=== PATIENT | male | born 1980 | race Two or more races ===

== ENCOUNTER 2019-01-19 01:31 | Emergency (ER) | payer OTHER ==
[~2019-01-19] VITALS: Ht 172.7 cm; Wt 125.2 kg
--- NOTE | 2019-01-19 03:05 | NUR ---
BIBF. C/O "HAVING COUGH/CONGESTION X 5 DAYS AND R FOOT PAIN FROM GOUT" -SOB NOTED. AOX4. VSS. AMBULATORY W ASSISTANCE
[2019-01-19] MEDS ORDERED: COLCHICINE 0.6 MG TABLET ONE (03:24)
[2019-01-19] MEDS ORDERED: ALLOPURINOL 100 MG TABLET PO SCH (03:30)
[2019-01-19] MEDS ORDERED: COLCHICINE 0.6 MG TABLET PO ONE (03:30)
[2019-01-19] MEDS ORDERED: ALLOPURINOL 100 MG TABLET ONE (03:41)
[2019-01-19] MEDS ORDERED: ACETAMINOPHEN ES 500 MG TABLET ONE (04:22)
[2019-01-19] MEDS ORDERED: ACETAMINOPHEN 325 MG TABLET PO ONE (04:30)
[2019-01-19 05:28] VITALS: BP 124/81
== END 2019-01-19 05:31 | disposition home or self-care (01) ==
LOC: ER 01:39
DX: M10.071 Idiopathic gout, right ankle and foot (principal); J06.9 Acute upper respiratory infection, unspecified; I10 Essential (primary) hypertension; E11.9 Type 2 diabetes mellitus without complications; Z98.890 Other specified postprocedural states; Z95.0 Presence of cardiac pacemaker; Z88.6 Allergy status to analgesic agent
CPT/HCPCS: 71045-TC

== ENCOUNTER 2020-01-26 00:31 | Emergency (ER) | payer OTHER ==
[~2020-01-26] VITALS: Ht 172.7 cm; Wt 127.0 kg
[2020-01-26] MEDS ORDERED: ACETAMINOPHEN ES 500 MG TABLET ONE (00:51)
--- NOTE | 2020-01-26 00:56 | NUR ---
PT AAOX4. BIBWIFE, C/O FEVER OF 101.7. STATED FEVER X3 DAYS ONLY AT NIGHT. VSS. PLACED IN BED 6 ON MONITOR AND PULSE OX. NO ACUTE DISTRESS NOTED.
[2020-01-26] MEDS ORDERED: ACETAMINOPHEN 325 MG TABLET PO ONE (01:00)
--- NOTE | 2020-01-26 01:15 | NUR ---
XRAY AT BEDSIDE
[2020-01-26 02:26] VITALS: BP 141/76
--- NOTE | 2020-01-26 02:26 | NUR ---
Patient discharged to home in stable condition. Written and verbal after care instructions given. Patient verbalizes understanding of instruction. Pt instructed to take tylenol and ibuprofen.
== END 2020-01-26 02:26 | disposition home or self-care (01) ==
LOC: ER 00:34
DX: R50.9 Fever, unspecified (principal); I10 Essential (primary) hypertension; E11.9 Type 2 diabetes mellitus without complications; M10.9 Gout, unspecified; Z95.0 Presence of cardiac pacemaker; Z98.890 Other specified postprocedural states; Z88.6 Allergy status to analgesic agent
CPT/HCPCS: 71045-TC

== ENCOUNTER 2020-01-27 19:17 | Emergency (ER) | payer OTHER ==
[~2020-01-27] VITALS: Ht 172.7 cm; Wt 127.0 kg
--- NOTE | 2020-01-27 19:20 | NUR ---
PT CAME TO THE ER C/O FEVER,LOW BLOOD PRESSURE, AND PALPITATIONS SINCE THIS MORNING. PT WAS SEEN HERE YESTERDAY. PER PT'S FAMILY, THEY ARE CONCERNED ABOUT THE PT'S HISTORY. PT AAOX4, VSS, RESPIRATIONS EVEN AND UNLABORED ON RA W/ NAD NOTED. PT CONNECTED TO THE MONITOR AND POX
--- NOTE | 2020-01-27 19:55 | NUR ---
DEATH CLAIM CLERK AT BEDSIDE FOR BLOOD DRAW
--- NOTE | 2020-01-27 19:56 | NUR ---
CALLED LAB FOR COVID SWAB
[2020-01-27] MEDS ORDERED: ACETAMINOPHEN ES 500 MG TABLET PO ONE (20:00)
[2020-01-27 20:04] LABS: BASOPHILS % (AUTO) 0.5 % (0.0-2.0); EOSINOPHILS % (AUTO) 0.2 % (0.0-6.0); HEMATOCRIT 40 % (39-51); HEMOGLOBIN 13.1 g/dL (13.5-17.5); LYMPHOCYTES # (AUTO) 1.3 /CMM (0.8-4.8); LYMPHOCYTES % (AUTO) 24.7 % (20.0-44.0); MEAN CORPUSCULAR HGB CONC 33 g/dl (31.0-36.0); MEAN CORPUSCULAR VOLUME 79 fL (80-96); MONOCYTES # (AUTO) 0.6 /CMM (0.1-1.30); MONOCYTES % (AUTO) 11.1 % (2.0-12.0); NEUTROPHILS # (AUTO) 3.4 /CMM (1.8-8.9); NEUTROPHILS % (AUTO) 63.5 % (43.0-81.0); PLATELET COUNT (AUTO) 187 /CMM (150-450); RED BLOOD CELL COUNT(AUTO) 5.08 MIL/uL (4.5-6.0); WHITE BLOOD COUNT (AUTO) 5.4 K/uL (4.3-11.0)
--- NOTE | 2020-01-27 20:08 | NUR ---
COVID SWAB SENT TO LAB
[2020-01-27 20:11] LABS: CARBON DIOXIDE 21 mmol/L (21-32); CHLORIDE 93 mmol/L (98-107); CREATININE 2.9 mg/dL (0.6-1.3); GLUCOSE 263 mg/dL (74-106); POTASSIUM 4.5 mmol/L (3.5-5.1); SODIUM SERUM 127 mmol/L (136-145); UREA NITROGEN, BLOOD 48 mg/dL (7-18)
[2020-01-27 20:24] LABS: ALANINE AMINOTRANSFERASE 126 U/L (12-78); ALBUMIN 3.3 g/dL (3.4-5.0); ALKALINE PHOSPHATASE 68 U/L (46-116); ASPARTATE AMINOTRANSFERASE 57 U/L (15-37); B-TYPE NATRIURETIC PEPTIDE 52 PG/ML (0-125); BILIRUBIN,TOTAL 0.4 mg/dL (0.2-1.0); TOTAL PROTEIN, SERUM 8.2 g/dL (6.4-8.2)
[2020-01-27 20:34] VITALS: BP 128/75
[2020-01-27 20:52] LABS: CREATINE KINASE, TOTAL 119 U/L (39-308); FERRITIN 2601 ng/mL (8-388)
[2020-01-27 20:56] LABS: C-REACTIVE PROTEIN 8.5 mg/dL (0.0-0.9)
[2020-01-27 20:57] LABS: D-DIMER 0.72 mg/L(FEU (0.17-0.50)
--- NOTE | 2020-01-27 21:10 | NUR ---
DR GARCIA AT BEDSIDE
[2020-01-27] MEDS ORDERED: LEVOFLOXACIN (250MG) 250 MG TABLET ONE (21:18)
--- NOTE | 2020-01-27 21:25 | NUR ---
Patient does not wish to proceed with medical care recommended by Dr. Hollingsworth. Patient given information related to possible complications, up to and including , which could occur as a result of leaving the hospital at this time. Patient verbalizes understanding of risks involved due to leaving against medical advice. Patient has signed AMA form.
[2020-01-27] MEDS ORDERED: LEVOFLOXACIN (250MG) 250 MG TABLET PO ONE (21:30)
--- NOTE | 2020-01-29 11:55 | NUR ---
CALLED REJI & NOTIFIED THAT HE'S COVID +. INSTRUCTED TO SELF QUARANTINE & RETURN IF CONDITION GETS WORSE. RAHEL AWARE ALSO. INSTRUCTED TO BE RETESTED, CALL [facility] FOR LOCATIONS OF COVID DRIVE THRU TEST. REJI & ACKNOWLEDGED WITH VERBAL UNDESTANDING.
== END 2020-01-27 21:26 | disposition left against medical advice (07) ==
LOC: ER 19:19
DX: U07.1 COVID-19 (principal); E87.1 Hypo-osmolality and hyponatremia; E87.2 Acidosis; Z95.810 Presence of automatic (implantable) cardiac defibrillator; E11.9 Type 2 diabetes mellitus without complications; R91.8 Other nonspecific abnormal finding of lung field; I10 Essential (primary) hypertension
CPT/HCPCS: 36415; 71045; 80053; 82550; 82728; 83605; 83615; 83880; 84145; 84484; 85025; 85378; 85385; 85730; 86140; 99284; C9803; U0003

== ENCOUNTER 2020-10-27 22:42 | Emergency (ER) | payer OTHER ==
[~2020-10-27] VITALS: Ht 172.7 cm; Wt 130.3 kg
--- NOTE | 2020-10-27 22:56 | NUR ---
BIBSELF C/O CHEST PAIN STARTED 15 MIN MASTER ELECTRICIAN +DIZZINESS, TOOK CARVEDILOL, AMLODIPINE, AND HYDRALZINE MASTER ELECTRICIAN, TO ER BED 3 AWAITING MD CARABALLO
[2020-10-27 23:19] LABS: BASOPHILS # (AUTO) 0.1 /CMM (0.0-0.2); BASOPHILS % (AUTO) 1.5 % (0.0-2.0); EOSINOPHILS % (AUTO) 3.5 % (0.0-6.0); HEMATOCRIT 44 % (39-51); HEMOGLOBIN 14.4 g/dL (13.5-17.5); LYMPHOCYTES # (AUTO) 2.3 /CMM (0.8-4.8); LYMPHOCYTES % (AUTO) 27.1 % (20.0-44.0); MEAN CORPUSCULAR HGB CONC 33 g/dl (31.0-36.0); MEAN CORPUSCULAR VOLUME 79 fL (80-96); MONOCYTES # (AUTO) 0.7 /CMM (0.1-1.30); MONOCYTES % (AUTO) 7.8 % (2.0-12.0); NEUTROPHILS % (AUTO) 60.1 % (43.0-81.0); PLATELET COUNT (AUTO) 249 /CMM (150-450); RED BLOOD CELL COUNT(AUTO) 5.51 MIL/uL (4.5-6.0); WHITE BLOOD COUNT (AUTO) 8.3 K/uL (4.3-11.0)
[2020-10-27 23:26] LABS: CALCIUM, SERUM 9.2 mg/dL (8.5-10.1); CARBON DIOXIDE 23 mmol/L (21-32); CHLORIDE 100 mmol/L (98-107); CREATININE 1.6 mg/dL (0.6-1.3); GLUCOSE 225 mg/dL (74-106); POTASSIUM 4.3 mmol/L (3.5-5.1); SODIUM SERUM 136 mmol/L (136-145); UREA NITROGEN, BLOOD 25 mg/dL (7-18)
[2020-10-28] MEDS ORDERED: hydrALAZINE HCL IV 20 MG VIAL ONE (00:14)
[2020-10-28] MEDS ORDERED: CLON0.2T PO (00:16)
[2020-10-28] MEDS ORDERED: hydrALAZINE HCL IV 20 MG VIAL IV ONE (00:30)
[2020-10-28 00:43] VITALS: BP 167/98
--- NOTE | 2020-10-28 00:43 | NUR ---
Patient discharged to home in stable condition. Written and verbal after care instructions given. Patient verbalizes understanding of instruction.
== END 2020-10-28 00:43 | disposition home or self-care (01) ==
LOC: ER 22:44
DX: R07.89 Other chest pain (principal); I10 Essential (primary) hypertension; E11.9 Type 2 diabetes mellitus without complications; Z88.6 Allergy status to analgesic agent; Z95.0 Presence of cardiac pacemaker
CPT/HCPCS: 36415; 71045; 80048; 83880; 84484; 85025; 93005 ×2; 96374; 99285; J0360

== ENCOUNTER 2021-07-15 10:49 | Inpatient (IN) | payer OTHER ==
[~2021-07-15] VITALS: Ht 172.7 cm; Wt 119.7 kg
[~2021-07-15 10:49] MED LIST: CLON0.2T PO
--- NOTE | 2021-07-15 11:02 | NUR ---
pt to er bed 02 c/o "chest arrythmia" sudden onset around 1 1/2 hour ago. pt appears anxious [employer]. 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 gowned and placed on monitor showing afib. awaiting md [place]ledo.
--- NOTE | 2021-07-15 11:04 | NUR ---
dr florian at bedside for eval.
--- NOTE | 2021-07-15 11:16 | NUR ---
radiology at bedside for chest xray
[2021-07-15] MEDS ORDERED: DILTIAZEM HCL 25 MG IV ONE (11:28)
[2021-07-15] MEDS ORDERED: DILTIAZEM HCL 50 MG IV IV ONE ×2 (11:30→12:00)
[2021-07-15] MEDS ORDERED: LORAZEPAM INJ 2 MG/ML VIAL ONE (11:37)
--- NOTE | 2021-07-15 11:43 | NUR ---
pt HR still at 122, appears anxious. dr florian at bedside. verbal order for cardizem 10mg and ativan 0.5 ivp. orders carried out.
[2021-07-15 11:56] LABS: BASOPHILS # (AUTO) 0.2 K/uL (0.0-0.2); BASOPHILS % (AUTO) 1.4 % (0.0-2.0); EOSINOPHILS % (AUTO) 2.2 % (0.0-6.0); HEMATOCRIT 46 % (39-51); HEMOGLOBIN 15.2 g/dL (13.5-17.5); LYMPHOCYTES # (AUTO) 2.7 K/uL (0.8-4.8); LYMPHOCYTES % (AUTO) 23.5 % (20.0-44.0); MEAN CORPUSCULAR HGB CONC 33 g/dl (31.0-36.0); MEAN CORPUSCULAR VOLUME 77 fL (80-96); MONOCYTES # (AUTO) 0.9 K/uL (0.1-1.30); MONOCYTES % (AUTO) 7.8 % (2.0-12.0); NEUTROPHILS # (AUTO) 7.5 K/uL (1.8-8.9); NEUTROPHILS % (AUTO) 65.1 % (43.0-81.0); PLATELET COUNT (AUTO) 302 K/uL (150-450); RED BLOOD CELL COUNT(AUTO) 5.89 MIL/uL (4.5-6.0); WHITE BLOOD COUNT (AUTO) 11.5 K/uL (4.3-11.0)
[2021-07-15] MEDS ORDERED: LORAZEPAM INJ 2 MG/ML VIAL IV ONE (12:00)
[2021-07-15] MEDS ORDERED: DULA0.75 SQ (13:11)
[2021-07-15] MEDS ORDERED: CARV25TA2 PO (13:11)
[2021-07-15] MEDS ORDERED: METF-442 PO (13:11)
[2021-07-15] MEDS ORDERED: HYDR-4077 PO (13:11)
[2021-07-15] MEDS ORDERED: LOSA100T31 PO (13:11)
[2021-07-15] MEDS ORDERED: AMLO-213 PO (13:11)
--- NOTE | 2021-07-15 13:23 | NUR ---
[facility] CALLED SPOOL SORTER PAGED.
--- NOTE | 2021-07-15 13:43 | NUR ---
[facility] CALLED LAYOUT WORKER PAGED.
--- NOTE | 2021-07-15 14:03 | NUR ---
nino left contact # [phone]
--- NOTE | 2021-07-15 14:30 | NUR ---
RECEIVED AUTHORIZATION FROM INSURANCE PER ADMITTING
[2021-07-15 14:44] LABS: CARBON DIOXIDE 24 mmol/L (21-32); CHLORIDE 98 mmol/L (98-107); CREATININE 2.6 mg/dL (0.6-1.3); GLUCOSE 190 mg/dL (74-106); POTASSIUM 5.8 mmol/L (3.5-5.1); SODIUM SERUM 132 mmol/L (136-145); UREA NITROGEN, BLOOD 45 mg/dL (7-18)
--- NOTE | 2021-07-15 15:23 | NUR ---
pt resting in bed. on monitor w/ updated vitals. will continue to monitor.
--- NOTE | 2021-07-15 16:39 | NUR ---
room 103
--- NOTE | 2021-07-15 17:20 | NUR ---
report given to marlon mehta. transfered to floor.
[2021-07-15] MEDS ORDERED: ACETAMINOPHEN 325 MG TABLET PO PRN (18:00)
[2021-07-15] MEDS ORDERED: hydrALAZINE HCL 50 MG TABLET PO PRN (18:00)
[2021-07-15] MEDS ORDERED: Z GUARD REMEDY 4 OZ OINT TP PRN (18:00)
[2021-07-15] MEDS ORDERED: DEXTROSE 50%-WATER 50 ML DISP.SYRIN IV PRN (18:00)
[2021-07-15] MEDS ORDERED: ONDANSETRON HCL/PF 4 MG/2 ML VIAL IVP PRN (18:00)
[2021-07-15] MEDS ORDERED: ZOLPIDEM TARTRATE 5 MG TABLET PO PRN (18:00)
--- NOTE | 2021-07-15 18:00 | NUR ---
RN NOTES RECEIVED PATIENT FROM ER AMBULATORY, A/O X4 LITHUANIAN SPEAKING. NO REPORT OF PAIN AT THIS TIME. ABLE TO MAKE NEEDS KNOWN. NO SOB OR RESPIRATORY DISCOMFORT. BREATHING EXPANSION EQUAL. VITAL SIGNS ARE BP 131/86, 52 HR, 98% O2 AND 18 RR. BED IN LOWEST POSITION AND LOCKED. CALL LIGHT WITHIN REACH. WILL CONTINUE TO MONITOR.
[2021-07-15] MEDS: APIXABAN 5 MG TABLET PO SCH (18:10)
[2021-07-15] MEDS: DILTIAZEM HCL CD 180 MG PO SCH (18:19)
[2021-07-15] MEDS ORDERED: SODIUM POLYSTYRENE SULFONATE 15 G/60 ML BOTTLE PO ONE (19:00)
[2021-07-15] MEDS ORDERED: LORAZEPAM 1 MG TABLET PO PRN (19:30)
[2021-07-15] MEDS ORDERED: DIGOXIN INJ 0.5 MG/2 ML AMPUL IV ONE (19:30)
--- NOTE | 2021-07-15 19:35 | NUR ---
RN NOTES RECEIVED PT FROM AM SHIFT FOR CONTINUATION OF ADMISSION. PT IS A/OX4 IN NO SIGNS OF ACUTE RESPIRATORY DISTRESS, NO COMPLAINTS OF PAIN & DISCOMFORT AT THIS TIME. CURRENTLY ON ROOM AIR TOLERATES WELL WITH 02 SAT >95% AT THIS TIME. COMPREHENSIVE PHYSICAL ASSESSMENT AND PATIENT CARE DONE. CALL LIGHT WITHIN REACH, SAFETY MEASURES AND ISOLATION PRECAUTION IN PLACE, WILL CONTINUE MONITOR AND ASSESS THROUGHOUT THE SHIFT. WILL CARRY OUT MD ORDERS ACCORDINGLY. COMBINER MADE AWARE.
[2021-07-15 20:00] VITALS: BP 135/90
[2021-07-15] MEDS: BLOOD SUGAR DIAGNOSTIC 1 EACH STRIP IN SCH (22:18)
[2021-07-15] MEDS: INSULIN REGULAR, HUMAN 100 UNIT/ML 3 ML VIAL SQ PRN (22:19)
[2021-07-16] VITALS: BP 137/83
--- NOTE | 2021-07-16 | NUR ---
RN NOTES PATIENT REMAINED TO BE IN NO SIGNS OF ACUTE RESPIRATORY DISTRESS, NO COMPLAINTS OF PAIN OR CHESTPAIN AT THIS TIME , VITAL SIGNS WNL AT THIS TIME. CHIP UNLOADER MADE AWARE. WILL CONTINUE TO MONITOR AND REASSESS FOR ANY CHANGES THROUGHOUT THE SHIFT.
[2021-07-16 04:00] VITALS: BP 134/91
[2021-07-16 06:25] LABS: BASOPHILS # (AUTO) 0.1 K/uL (0.0-0.2); BASOPHILS % (AUTO) 1.2 % (0.0-2.0); EOSINOPHILS % (AUTO) 2.9 % (0.0-6.0); HEMATOCRIT 45 % (39-51); HEMOGLOBIN 14.9 g/dL (13.5-17.5); LYMPHOCYTES # (AUTO) 3.6 K/uL (0.8-4.8); LYMPHOCYTES % (AUTO) 35.4 % (20.0-44.0); MEAN CORPUSCULAR HGB CONC 33 g/dl (31.0-36.0); MEAN CORPUSCULAR VOLUME 77 fL (80-96); MONOCYTES # (AUTO) 0.9 K/uL (0.1-1.30); MONOCYTES % (AUTO) 8.6 % (2.0-12.0); NEUTROPHILS # (AUTO) 5.3 K/uL (1.8-8.9); NEUTROPHILS % (AUTO) 51.9 % (43.0-81.0); PLATELET COUNT (AUTO) 285 K/uL (150-450); RED BLOOD CELL COUNT(AUTO) 5.81 MIL/uL (4.5-6.0); WHITE BLOOD COUNT (AUTO) 10.1 K/uL (4.3-11.0)
--- NOTE | 2021-07-16 06:44 | NUR ---
RN CLOSING NOTE: PATIENT REMAINS IN ROOM IN NO SIGNS OF RESPIRATORY DISTRESS, PATIENT STILL ON ROOM AIR;TOLERATING WELL SATURATING @ >95% SP02. STILL ON TELE MONITORING WITH RHYTHM OF AFIB CONTROLLED CURRENTLY HR IS AT 85 BPM. NO COMPLAINTS OF CHEST PAIN OR PALPITATION DURING THE SHIFT. SAFETY MEASURES IMPLEMENTED, BED IN LOWEST POSITION, LOCKED, SIDE RAILS UP, CALL LIGHT WITHIN REACH. ALL NEEDS AND ORDERS ADDRESSED DURING THE SHIFT. IV ACCESS MAINTAINED INTACT, SECURED AND FLUSHING WELL. ALL DUE MEDS GIVEN ORDERED & SCHEDULED ; PATIENT TOLERATED WELL. PATIENT KEPT CLEAN AND COMFORTABLE WITHIN THE SHIFT. PATIENT ENDORSED TO INCOMING SHIFT RN WITH STABLE VITAL SIGN AND FOR CONTINUITY OF CARE.
[2021-07-16 07:00] LABS: ALBUMIN 2.5 g/dL (3.4-5.0); BILIRUBIN,TOTAL 0.2 mg/dL (0.2-1.0); CALCIUM, SERUM 8.9 mg/dL (8.5-10.1); CREATININE 2.5 mg/dL (0.6-1.3); PHOSPHORUS 5.2 mg/dL (2.5-4.9); POTASSIUM 3.9 mmol/L (3.5-5.1); TOTAL PROTEIN, SERUM 6.9 g/dL (6.4-8.2)
[2021-07-16 07:24] LABS: THYROID STIMULATING HORMONE 2.966 uIU/mL (0.358-3.74)
--- NOTE | 2021-07-16 07:26 | NUR ---
RN OPENING NOTES RECEIVED PATIENT RESTING IN BED A/OX 4 NO SIGNS OF RESPIRATORY DISTRESS, PATIENT ON ROOM AIR;TOLERATING WELL SATURATING 98% SP02. NO CURRENT COMPLAINTS OF CHEST PAIN . IV ACCESS ON RIGHT HAND 22g SL. SAFETY MEASURES IMPLEMENTED, BED IN LOWEST POSITION, LOCKED, SIDE RAILS UP, CALL LIGHT WITHIN REACH.
[2021-07-16 08:00] VITALS: BP 132/91
[2021-07-16] MEDS: DILTIAZEM HCL CD 180 MG PO SCH (08:06)
[2021-07-16] MEDS: CARVEDILOL 12.5 MG TABLET PO SCH ×2 (08:07→18:14)
[2021-07-16] MEDS: LOSARTAN POTASSIUM 50 MG TABLET PO SCH (08:07)
[2021-07-16] MEDS: PANTOPRAZOLE 40 MG TABLET.DR PO SCH (08:07)
[2021-07-16] MEDS: APIXABAN 5 MG TABLET PO SCH ×2 (08:08→18:13)
[2021-07-16] MEDS: AMLODIPINE BESYLATE 10 MG TABLET PO SCH (08:12)
[2021-07-16] MEDS: BLOOD SUGAR DIAGNOSTIC 1 EACH STRIP IN SCH ×4 (08:21→21:25)
[2021-07-16] MEDS: INSULIN REGULAR, HUMAN 100 UNIT/ML 3 ML VIAL SQ PRN ×3 (08:21→21:25)
--- NOTE | 2021-07-16 08:22 | NUR ---
RN NOTE PATIENTS AC BLOOD SUGAR NOTED TO BE 176, INSULIN COVERAGE OF 3 UNITS PRESCRIBED.PATIENT REFUSED INSULIN. DISCUSSED WITH HIM THE RECOMMENDED PRESCRIPTION AND REASONING FOR RX. PATIENT REFUSED.
[2021-07-16] MEDS ORDERED: METFORMIN 500 MG TABLET PO SCH (09:00)
[2021-07-16] MEDS ORDERED: AMIODARONE 150 MG in IV D5W 100 ML IV ONE (10:00)
--- NOTE | 2021-07-16 10:40 | NUR ---
RN NOTE PATIENT STARTED ON AMIODARONE IV BOLUS. PATIENT STABLE VITALS 98.2 TEMP, 86 BPM HR, 137/66 BLOOD PRESSURE. WILL STAY WITH PATIENT FOR THE NEXT 15 MINUTES WHILE INFUSING PATIENT ALSO INFORMED TO STATE ANY PALPITATIONS OR CHANGES.
--- NOTE | 2021-07-16 10:55 | NUR ---
RN NOTE PATIENT STABLE BLOOD PRESSURE 117/83, PULSE86, TEMP 98.2. NO REACTION NOTED. WILL INITIATE AMIODARONE 1MG/MIN FOR THE NEXT 6HRS. PATIENT REMINDED TO ALERT NURSE FOR ANY CHANGES.
[2021-07-16] MEDS: AMIODARONE 450 MG in IV D5W 250 ML IV PRN ×2 (11:19→19:06)
--- NOTE | 2021-07-16 11:19 | NUR ---
RN NOTE AMIODARONE 1MG/ML STARTED. PATIENT IN STABLE CONDITION. REMINDED TO REPORT ANY CHANGE IN CONDITION.
[2021-07-16 12:00] VITALS: BP 117/83
[2021-07-16] MEDS: DIGOXIN 0.125 MG TABLET PO SCH (13:21)
[2021-07-16 16:00] VITALS: BP 115/72
--- NOTE | 2021-07-16 19:02 | NUR ---
RN CLOSING NOTES RECEIVED PATIENT RESTING IN BED A/OX 4 NO SIGNS OF RESPIRATORY DISTRESS, PATIENT ON ROOM AIR;TOLERATING WELL SATURATING 98% SP02. NO CURRENT COMPLAINTS OF CHEST PAIN . IV ACCESS ON LEFT HAND 22g CURRENTLY RUNNING AMIODARONE DRIP 0.5MG. . SAFETY MEASURES IMPLEMENTED, BED IN LOWEST POSITION, LOCKED, SIDE RAILS UP, CALL LIGHT WITHIN REACH. WILL ENDORSE TO NIGHT NURSE FOR DIVINA.
--- NOTE | 2021-07-16 19:30 | NUR ---
RN NOTES RECEIVED PT FOR CONTINUITY OF CARE. PATIENT A/OX4 IN NO S/SX OF ACUTE DISTRESS AT THIS TIME; CURRENTLY ON ROOM AIR, WITH 02 SAT >95% AT THIS TIME. RECEIVED PT WITH RUNNING AMIO DRIP @0.5MG/MIN MONITORED PER PROTOCOL. WITH IV ACCESS ON L HAND #22L PATENT, INTACT AND FLUSHING WELL. WILL ENSURE SAFETY MEASURES WITHIN THE SHIFT. PATIENT BED ALARM IS ON. HEAD OF BED ELEVATED. BED IS LOCKED, IN LOWEST POSITION AND SIDE RAILS UP. CALL LIGHT WITHIN REACH OF THE PATIENT. APPLICABLE ISOLATION PRECAUTIONS IN PLACE. WILL CONTINUE TO MONITOR AND REASSESS FOR ANY CHANGES AND WILL CARRY OUT ANY ONGOING AND ACTIVE MD ORDER.
[2021-07-16 20:00] VITALS: BP 127/80
--- NOTE | 2021-07-16 20:55 | NUR ---
RN NOTES PICC LINE NURSE (JOSE) FACILITATED INSERTION OF MIDLINE @R UA G#18, SECURED , INTACT AND FLUSHING WELL. BANK COURIER WELL AWARE.
[2021-07-17] VITALS (7 sets, daily range): BP systolic 106–124; BP diastolic 64–82
--- NOTE | 2021-07-17 06:36 | NUR ---
RN CLOSING NOTE: PATIENT REMAINS IN ROOM IN NO SIGNS OF RESPIRATORY DISTRESS, PATIENT STILL ON ROOM AIR;TOLERATING WELL SATURATING @ >95% SP02. STILL ON TELE MONITORING WITH RHYTHM OF AFIB CONTROLLED CURRENTLY HR IS AT 76 BPM. NO COMPLAINTS OF CHEST PAIN OR PALPITATION DURING THE SHIFT. WITH RUNNING AMIO DRIP CURRENTLY @0.5MG/MIN, INFUSING PER PROTOCOL. SAFETY MEASURES IMPLEMENTED, BED IN LOWEST POSITION, LOCKED, SIDE RAILS UP, CALL LIGHT WITHIN REACH. ALL NEEDS AND ORDERS ADDRESSED DURING THE SHIFT. IV ACCESS MAINTAINED INTACT, SECURED AND FLUSHING WELL. ALL DUE MEDS GIVEN ORDERED & SCHEDULED ; PATIENT TOLERATED WELL. PATIENT KEPT CLEAN AND COMFORTABLE WITHIN THE SHIFT. PATIENT ENDORSED TO INCOMING SHIFT RN WITH STABLE VITAL SIGN AND FOR CONTINUITY OF CARE.
--- NOTE | 2021-07-17 07:30 | NUR ---
TD RN AM NOTE: PATIENT IN BED, ON ROOM AIR;NOT IN ANY DISTRESS, RESPIRATION UNLABORED, TOLERATING WELL SATURATING @ >95% SP02. AFIB CONTROLLED HR 78, DENIES ANY CHEST PAIN OR DISCOMFORT AT THIS TIME. WITH RUNNING AMIO DRIP CURRENTLY @0.5MG/MIN, OMAR MIDLINE, LEFT AC IV SITE, FLUSHES WELL, BOTH SITES CLEAR. AMBULATORY CCHO DIET. SAFETY MEASURES IMPLEMENTED, BED IN LOWEST POSITION, LOCKED, SIDE RAILS UP, CALL LIGHT WITHIN REACH. WILL CONTINUE TO MONITOR
[2021-07-17] MEDS: BLOOD SUGAR DIAGNOSTIC 1 EACH STRIP IN SCH ×4 (08:22→22:31)
[2021-07-17] MEDS: PANTOPRAZOLE 40 MG TABLET.DR PO SCH (08:23)
[2021-07-17] MEDS: AMLODIPINE BESYLATE 10 MG TABLET PO SCH (08:27)
[2021-07-17] MEDS: DILTIAZEM HCL CD 180 MG PO SCH (08:27)
[2021-07-17] MEDS: CARVEDILOL 12.5 MG TABLET PO SCH ×2 (08:27→17:07)
[2021-07-17] MEDS: LOSARTAN POTASSIUM 50 MG TABLET PO SCH (08:28)
[2021-07-17] MEDS: APIXABAN 5 MG TABLET PO SCH ×2 (08:29→17:08)
--- NOTE | 2021-07-17 08:50 | NUR ---
RN NOTES PER DR. BLAKE TO [facility] SCHEDULED FOR CARDIOVERSION AT 1600 ROOM 254 ICU
[2021-07-17] MEDS: INSULIN REGULAR, HUMAN 100 UNIT/ML 3 ML VIAL SQ PRN ×2 (09:19→17:14)
--- NOTE | 2021-07-17 09:30 | NUR ---
RN NOTES DUE MEDS GIVEN. DR. BLAKE SPOKE WITH . ACCORDING TO HER, HER SUPPOSED TO HAVE THE SAME PROCEDURE IN [facility] BUT DID NOT DO IT DUE TO WEAK HEART. THEY WANT TO WAIT FOR CARDIOVERSION PROCEDURE AND NOT DONE AT THIS TIME. DR. GOLDBERG SAID HE WILL SPEAK TO THEIR ENVIRONMENTAL HEALTH AND SAFETY LEADER. KEEP PATIENT NPO
--- NOTE | 2021-07-17 12:16 | NUR ---
RN NOTES ACCUCHECK DONE. BS 185 MG/DL. PER FAMILY REQUEST, NO INSULIN AT THIS TIME. PT IS NPO FOR SCHEDULED CARDIOVERSION. PER DR. PENDLETON HOLD DIGOXIN 0.125 FOR NOW
[2021-07-17] MEDS: DIGOXIN 0.125 MG TABLET PO SCH (12:30)
--- NOTE | 2021-07-17 14:50 | NUR ---
RN NOTES PATIENT TRANSFERRED TO ICU 254 FOR SCHEDULED CARDIOVERSION. REPORT GIVEN TO LISA CORONA FOR DIVINA
[2021-07-17 15:32] LABS: BASOPHILS # (AUTO) 0.1 K/uL (0.0-0.2); BASOPHILS % (AUTO) 0.9 % (0.0-2.0); EOSINOPHILS % (AUTO) 1.9 % (0.0-6.0); HEMATOCRIT 44 % (39-51); HEMOGLOBIN 14.7 g/dL (13.5-17.5); LYMPHOCYTES # (AUTO) 2.4 K/uL (0.8-4.8); LYMPHOCYTES % (AUTO) 22.8 % (20.0-44.0); MEAN CORPUSCULAR HGB CONC 34 g/dl (31.0-36.0); MEAN CORPUSCULAR VOLUME 77 fL (80-96); MONOCYTES # (AUTO) 0.8 K/uL (0.1-1.30); MONOCYTES % (AUTO) 7.4 % (2.0-12.0); PLATELET COUNT (AUTO) 302 K/uL (150-450); RED BLOOD CELL COUNT(AUTO) 5.69 MIL/uL (4.5-6.0); WHITE BLOOD COUNT (AUTO) 10.5 K/uL (4.3-11.0)
[2021-07-17 15:46] LABS: ALBUMIN 2.8 g/dL (3.4-5.0); BILIRUBIN,TOTAL 0.3 mg/dL (0.2-1.0); CALCIUM, SERUM 8.7 mg/dL (8.5-10.1); CREATININE 3.2 mg/dL (0.6-1.3); MAGNESIUM 2.3 mg/dL (1.8-2.4); PHOSPHORUS 4.6 mg/dL (2.5-4.9); TOTAL PROTEIN, SERUM 7.1 g/dL (6.4-8.2)
--- NOTE | 2021-07-17 16:30 | NUR ---
RN NOTE AT APPROX 1500, PT WAS BROUGHT UP BY GISELE RN AND SOCIAL SERVICES DESIGNEE VIA HOSP BED. PT IS A&OX4, CALM AND COOPERATIVE, NO C/O PAIN. AT APPROX 1620, PT WAS CARDIOVERTED, PT WOKE UP FROM SEDATION AT 1635, WAS GIVEN OKAY TO RETURN DOWNSTAIRS BY . AT 1640, PT WAS TRANSPORTED BACK TO [facility] ACCOMPANIED BY PRIMARY RN AND CN ON PORTABLE BEDSIDE MONITOR. PT ENDORSED TO FORMER RN, BREATHING EVEN AND UNLABORED ON RA, C/O MINOR PAIN IN CHEST, A&OX4 AND CALM/COOPERATIVE.
--- NOTE | 2021-07-17 16:45 | NUR ---
CHLOE OTES S/P CARDIOVERSION FROM ICU. SINUS RHYTHM ON EKG DENIES ANY DISCOMFORT.
[2021-07-17] MEDS: AMIODARONE HCL 200 MG TABLET PO SCH (17:07)
--- NOTE | 2021-07-17 22:15 | NUR ---
RN NOTES ACCUCHECK BS 143 MG/DL, REFUSED INSULIN SS
[2021-07-18] VITALS: BP 123/70
[2021-07-18 04:00] VITALS: BP 134/83
--- NOTE | 2021-07-18 06:34 | NUR ---
TD RN AM NOTE: PATIENT IN BED, ASLEEP, RESPONDS TO NAME AND TOUCH, AOX4, SLOV[place] SPEAKING. ON ROOM AIR;NOT IN ANY DISTRESS, RESPIRATION UNLABORED, TOLERATING WELL SATURATING @ >95% SP02. SR HR 81, DENIES ANY CHEST PAIN OR DISCOMFORT AT THIS TIME. OMAR MIDLINE, LEFT AC IV SITE, FLUSHES WELL, BOTH SITES CLEAR. AMBULATORY CCHO DIET. SAFETY MEASURES IMPLEMENTED, BED IN LOWEST POSITION, LOCKED, SIDE RAILS UP, CALL LIGHT WITHIN REACH. ALL NEEDS MET. WILL ENDORSE TO NEXT SHIFT FOR DIVINA. S/P CARDIOVERSION 07/17/2021.
[2021-07-18 06:49] LABS: ALBUMIN 2.7 g/dL (3.4-5.0); BILIRUBIN,TOTAL 0.3 mg/dL (0.2-1.0); CALCIUM, SERUM 8.7 mg/dL (8.5-10.1); CREATININE 3.3 mg/dL (0.6-1.3); MAGNESIUM 2.2 mg/dL (1.8-2.4); PHOSPHORUS 5.3 mg/dL (2.5-4.9); POTASSIUM 3.6 mmol/L (3.5-5.1); TOTAL PROTEIN, SERUM 6.7 g/dL (6.4-8.2)
[2021-07-18 07:03] LABS: BASOPHILS # (AUTO) 0.1 K/uL (0.0-0.2); BASOPHILS % (AUTO) 1.2 % (0.0-2.0); EOSINOPHILS % (AUTO) 2.8 % (0.0-6.0); HEMATOCRIT 40 % (39-51); HEMOGLOBIN 13.5 g/dL (13.5-17.5); LYMPHOCYTES # (AUTO) 3.2 K/uL (0.8-4.8); LYMPHOCYTES % (AUTO) 37.1 % (20.0-44.0); MEAN CORPUSCULAR HGB CONC 34 g/dl (31.0-36.0); MEAN CORPUSCULAR VOLUME 77 fL (80-96); MONOCYTES # (AUTO) 0.7 K/uL (0.1-1.30); MONOCYTES % (AUTO) 8.2 % (2.0-12.0); NEUTROPHILS # (AUTO) 4.3 K/uL (1.8-8.9); NEUTROPHILS % (AUTO) 50.7 % (43.0-81.0); PLATELET COUNT (AUTO) 248 K/uL (150-450); RED BLOOD CELL COUNT(AUTO) 5.25 MIL/uL (4.5-6.0); WHITE BLOOD COUNT (AUTO) 8.5 K/uL (4.3-11.0)
--- NOTE | 2021-07-18 07:36 | NUR ---
TD RN NOTE: PATIENT IN BED, AOX4, ON ROOM AIR;NOT IN ANY DISTRESS, RESPIRATION UNLABORED, NO SOB NOTED AT THIS TIME , DENIES ANY CHEST PAIN OR DISCOMFORT AT THIS TIME. OMAR MIDLINE, LEFT AC IV SITE, FLUSHES WELL, BOTH SITES INTACT . AND FLUSHED WELL SAFETY MEASURES IMPLEMENTED, BED IN LOWEST POSITION, LOCKED, SIDE RAILS UP, CALL LIGHT WITHIN REACH. ALL NEEDS MET
[2021-07-18 08:00] VITALS: BP 113/71
[2021-07-18] MEDS: AMIODARONE HCL 200 MG TABLET PO SCH ×2 (08:21→12:58)
[2021-07-18] MEDS: PANTOPRAZOLE 40 MG TABLET.DR PO SCH (08:21)
[2021-07-18] MEDS: CARVEDILOL 12.5 MG TABLET PO SCH (08:21)
[2021-07-18] MEDS: APIXABAN 5 MG TABLET PO SCH (08:22)
[2021-07-18] MEDS: LOSARTAN POTASSIUM 50 MG TABLET PO SCH (09:14)
[2021-07-18] MEDS: AMLODIPINE BESYLATE 10 MG TABLET PO SCH (09:15)
[2021-07-18] MEDS: BLOOD SUGAR DIAGNOSTIC 1 EACH STRIP IN SCH ×2 (09:16→11:45)
--- NOTE | 2021-07-18 11:05 | NUR ---
regional telecommunications specialist note dr lorri Portillo seen patint stated ok to discharge home ,will f\u
[2021-07-18 12:08] VITALS: BP 102/73
[2021-07-18] MEDS ORDERED: AMIO200T7 PO (12:14)
[2021-07-18] MEDS ORDERED: APIX5TAB PO (12:14)
--- NOTE | 2021-07-18 12:50 | NUR ---
PHYSIOTHERAPY AIDE NOTE AMIODARONE PO GIVEN ORDERED ,HR 75 BP UPON DISCHARGE IS 132/77
[2021-07-18 12:58] VITALS: BP 132/77
--- NOTE | 2021-07-18 13:03 | NUR ---
telecommunications consultant note discharge instruction given , hl and mid line removed, no bleeding noted ,dry pressure dressing applied , ,discharge instruction given understood , instructed to f\u with primary care doctor and electric meter tester , also instructed how to take new px and possible side effects , phone number of [facility] given to patient, belonging checked , all belonging given to patent , at bedside , taken to lobby by walking , went home with stable condition
--- NOTE | 2021-07-18 13:20 | NUR ---
MICHEL RN NOT CALLED TO [facility] SPOKE WITH PHARMACIST STATED THAT MEDICATION READY TO PLUGGER WORKER , QUITA NOTIFIED
[2021-07-20 08:06] LABS: *SPE A/G RATIO 0.7 (0.7-1.7); *SPE ALPHA-1-GLOBULIN 0.2 g/dL (0.0-0.4); *SPE ALPHA-2-GLOBULIN 1.1 g/dL (0.4-1.0); *SPE BETA GLOBULIN 1.4 g/dL (0.7-1.3); *SPE M-SPIKE Not Observed g/dL (Not Observed)
== END 2021-07-18 12:59 | disposition home or self-care (01) | DRG 201 ==
LOC: ER 10:51 → TELE1 17:05 → TELE-TD 07-16 10:27 → ICU 07-17 14:51 → TELE-TD 07-17 16:51 → MEDSG1 07-18 12:37
PROVIDERS: ADMIT Nurse Practitioner Acute Care; ATTEND Nurse Practitioner Acute Care
PROC: 05H533Z Insertion of Infusion Device into Right Subclavian Vein, Percutaneous Approach (ICD-10-PCS; 2021-07-16)
PROC: B546ZZA Ultrasonography of Right Subclavian Vein, Guidance (ICD-10-PCS; 2021-07-16)
PROC: 5A2204Z Restoration of Cardiac Rhythm, Single (ICD-10-PCS; principal; 2021-07-17)
DX: I48.91 Unspecified atrial fibrillation (principal); N17.0 Acute kidney failure with tubular necrosis; D68.69 Other thrombophilia; I42.9 Cardiomyopathy, unspecified; E44.0 Moderate protein-calorie malnutrition; E87.1 Hypo-osmolality and hyponatremia; I50.42 Chronic combined systolic (congestive) and diastolic (congestive) heart failure; I13.0 Hypertensive heart and chronic kidney disease with heart failure and stage 1 through stage 4 chronic kidney disease, or unspecified chronic kidney disease; E11.22 Type 2 diabetes mellitus with diabetic chronic kidney disease; N18.4 Chronic kidney disease, stage 4 (severe); Z86.711 Personal history of pulmonary embolism; Z86.718 Personal history of other venous thrombosis and embolism; Z95.0 Presence of cardiac pacemaker; E87.5 Hyperkalemia; F41.9 Anxiety disorder, unspecified; D72.829 Elevated white blood cell count, unspecified; Z79.01 Long term (current) use of anticoagulants; N28.1 Cyst of kidney, acquired; Z68.41 Body mass index [BMI] 40.0-44.9, adult; Z79.84 Long term (current) use of oral hypoglycemic drugs; E66.01 Morbid (severe) obesity due to excess calories
CPT/HCPCS: 36410; 36415; 71045-TC; 76770-TC; 80048-TC; 80053-TC; 80061-TC; 82550-TC; 82962-TC; 83540-TC; 83735-TC; 83970; 84100-TC; 84155; 84165; 84443-TC; 84484-TC; 85025-TC; 87081-TC; 93307-TC; 93970-TC; C9803; G0378; J0282; J1160; J1815; J2060; J2704; J3490; J7050; J7060

== ENCOUNTER 2022-11-20 22:19 | Emergency (ER) | payer OTHER ==
[~2022-11-20] VITALS: Ht 172.7 cm; Wt 111.1 kg
[~2022-11-20 22:19] MED LIST changes: +AMIO200T7 PO; +AMLO-213 PO; +APIX5TAB PO; +CARV25TA2 PO; -CLON0.2T PO; +DULA0.75 SQ; +HYDR-4077 PO; +LOSA100T31 PO; +METF-442 PO
[2022-11-21] MEDS ORDERED: ONDANSETRON HCL/PF 4 MG/2 ML VIAL ONE (00:17)
[2022-11-21] MEDS ORDERED: MORPHINE SULFATE INJ 2 MG/ML DISP.SYRIN ONE (00:17)
[2022-11-21] MEDS ORDERED: MORPHINE SULFATE INJ 4 MG/ML DISP.SYRIN ONE (00:17)
[2022-11-21] MEDS ORDERED: MORPHINE SULFATE INJ 2 MG/ML DISP.SYRIN IV ONE (00:30)
[2022-11-21] MEDS ORDERED: ONDANSETRON HCL/PF 4 MG/2 ML VIAL IV ONE (00:30)
[2022-11-21 00:57] LABS: BASOPHILS # (AUTO) 0.1 K/uL (0.0-0.2); BASOPHILS % (AUTO) 0.9 % (0.0-2.0); EOSINOPHILS # (AUTO) 0.3 K/uL (0.0-0.7); EOSINOPHILS % (AUTO) 2.2 % (0.0-6.0); HEMATOCRIT 35 % (39-51); HEMOGLOBIN 11.2 g/dL (13.5-17.5); LYMPHOCYTES # (AUTO) 1.8 K/uL (0.8-4.8); LYMPHOCYTES % (AUTO) 15.2 % (20.0-44.0); MEAN CORPUSCULAR HEMOGLOBIN 26 PG (26.0-33.0); MEAN CORPUSCULAR HGB CONC 32 g/dl (31.0-36.0); MEAN CORPUSCULAR VOLUME 80 fL (80-96); MONOCYTES % (AUTO) 8.8 % (2.0-12.0); NEUTROPHILS # (AUTO) 8.7 K/uL (1.8-8.9); NEUTROPHILS % (AUTO) 72.9 % (43.0-81.0); PLATELET COUNT (AUTO) 268 K/uL (150-450); RED BLOOD CELL COUNT(AUTO) 4.36 MIL/uL (4.5-6.0); RED CELL DISTRIBUTION WIDTH 14.1 % (11.5-15.0); WHITE BLOOD COUNT (AUTO) 11.9 K/uL (4.3-11.0)
[2022-11-21 01:21] LABS: CALCIUM, SERUM 9.2 mg/dL (8.5-10.1); CREATININE 6.3 mg/dL (0.6-1.3); POTASSIUM 4.9 mmol/L (3.5-5.1)
[2022-11-21 01:40] LABS: ERYTHROCYTE SEDIMENTATION RATE 74 MM/HR (0-15)
[2022-11-21] MEDS ORDERED: HYDROMORPHONE 1 MG/1 ML DISP.SYRIN ONE (01:47)
[2022-11-21 01:55] LABS: ALBUMIN 3.3 g/dL (3.4-5.0); BILIRUBIN,TOTAL 0.4 mg/dL (0.2-1.0); TOTAL PROTEIN, SERUM 8.2 g/dL (6.4-8.2)
[2022-11-21] MEDS ORDERED: LIDOCAINE 2% 20 ML MDV ONE (01:57)
[2022-11-21] MEDS ORDERED: HYDROMORPHONE 1 MG/1 ML DISP.SYRIN IV ONE (02:00)
[2022-11-21] MEDS ORDERED: LIDOCAINE 2% 20 ML MDV TP ONE (02:00)
[2022-11-21 02:15] LABS: C-REACTIVE PROTEIN 13.2 mg/dL (0.0-0.9)
[2022-11-21 03:28] LABS: WBC, BODY FLUID 2878 /cu. mm. (0-200)
[2022-11-21] MEDS ORDERED: CYCLOBENZAPRINE 10 MG TABLET PO ONE (03:30)
[2022-11-21 04:55] LABS: SYNOVIAL FLUID, CRYSTALS NONE SEEN (NONE SEEN)
[2022-11-21 05:28] LABS: PROTEIN, SYNOVIAL FLUID 4.66
[2022-11-21 08:57] VITALS: BP 149/98; TEMP 98.6; O2SAT 96
== END 2022-11-21 09:54 | disposition short-term general hospital (02) ==
LOC: ER 22:23
DX: N17.9 Acute kidney failure, unspecified (principal); M25.461 Effusion, right knee; M25.561 Pain in right knee; I10 Essential (primary) hypertension; E11.9 Type 2 diabetes mellitus without complications; Z88.8 Allergy status to other drugs, medicaments and biological substances
CPT/HCPCS: 20611; 36415; 73564; 80053; 83615; 84155; 85025; 85652; 86140; 87070; 89060; 93971; 96374; 96375; 99285; J1170; J2270; J2405; J3490